=== PATIENT | male | born 1960 | race Caucasian/White ===

== ENCOUNTER 2020-04-29 13:08 | Outpatient (REF) | payer MEDICARE, MEDICAID, SELFPAY ==
[2020-04-29 14:29] LABS: MANUAL DIFF FLAG NO
[2020-04-29 14:38] LABS: Basophils Absolute Auto 0.1 X10*3/uL (0.0-0.2); Basophils Percent Auto 0.9 % (0-2); Eosinophils Absolute Auto 0.3 X10*3/uL (0.0-0.4); Eosinophils Percent Auto 2.8 % (0-4); Hematocrit 43.5 % (42-52); Hemoglobin 14.6 g/dl (14.0-18.0); Imm Gran Abs Auto 0.02 X10*3/uL (0.00-0.03); Imm Gran Pct Auto 0.2 % (0.0-0.4); Lymphocytes Absolute Auto 3.3 X10*3/uL (1.2-4.9); Lymphocytes Percent Auto 36.4 % (20-40); Mean Corpuscular HGB Conc 33.6 g/dl (31.0-36.0); Mean Corpuscular Hemoglobin 29.3 pg (27.0-33.0); Mean Corpuscular Volume 87.2 fL (80-98); Mean Platelet Volume 11.3 fL (9.4-12.4); Monocytes Absolute Auto 0.7 X10*3/uL (0.1-1.2); Neutrophils Absolute Auto 4.7 X10*3/uL (2.0-8.3); Neutrophils Percent Auto 51.7 % (45-73); Platelet Count 191 X10*3/uL (160-400); Red Blood Count 4.99 X10*6/uL (4.60-5.80); Red Cell Distribution Width 12.6 % (11.0-16.0)
[2020-04-29 14:43] LABS: Estimated Average Glucose 100 mg/dL; Hemoglobin A1c % 5.1 %
[2020-04-29 15:25] LABS: Anion Gap 13 (12-20); Blood Urea Nitrogen 12 mg/dL (9-16); Calcium 8.6 mg/dL (8.4-10.2); Carbon Dioxide 27 mmol/L (22-29); Chloride 103 mmol/L (96-108); Cholesterol 186 mg/dL; Estimated Glomerular Filt Rate > 60; Glucose Fasting 78 mg/dL (60-99); HDL Cholesterol 36 mg/dL; LDL Cholesterol Calculated 124 mg/dl; Potassium 4.3 mmol/l (3.3-5.1); Sodium 139 mmol/L (135-145); Triglycerides 133 mg/dL
== END 2020-04-29 13:09 | disposition home or self-care (01) ==
LOC: HO.LAB 13:08
PROVIDERS: PCP Nurse Practitioner Family; Visit Provider Nurse Practitioner Family
DX: G47.01 Insomnia due to medical condition (principal); J45.20 Mild intermittent asthma, uncomplicated; Z83.3 Family history of diabetes mellitus; Z83.42 Family history of familial hypercholesterolemia
CPT/HCPCS: 36415; 80048; 80061; 83036; 85025

== ENCOUNTER 2020-06-28 10:07 | Outpatient (REF) | payer MEDICARE, MEDICAID, SELFPAY | END 2020-06-28 10:08 | disposition home or self-care (01) | LOC: HO.LAB 10:07 | PROVIDERS: Visit Provider Internal Medicine | DX: Z20.822 Contact with and (suspected) exposure to COVID-19 (principal) | CPT/HCPCS: 36415; C9803; U0003 ==

== ENCOUNTER 2020-08-21 14:36 | Emergency (ER) | payer MEDICARE, MEDICAID, SELFPAY ==
[2020-08-21 14:40] VITALS: BP 181/105; PULSE 94; RESP 18; TEMP 36.8; O2SAT 97
[2020-08-21 14:56] VITALS: BP 147/93; PULSE 100; RESP 18; TEMP 36.7; O2SAT 98; BMI 26.6
--- NOTE | 2020-08-21 15:26 | ECG_ITS ---
Test Reason : HIGH BP Blood Pressure : / mmHG Vent. Rate : 077 BPM Atrial Rate : 077 BPM P-R Int : 174 ms QRS Dur : 090 ms QT Int : 412 ms P-R-T Axes : 064 014 030 degrees QTc Int : 466 ms Normal sinus rhythm Normal ECG When compared with ECG of 03-JUN-2015 22:03, No significant change was found Referred By: Generic ED Physician Electronically Signed By:MESSI TAN
[2020-08-21 15:45] LABS: MANUAL DIFF FLAG NO
[2020-08-21 15:47] LABS: Basophils Absolute Auto 0.1 X10*3/uL (0.0-0.2); Basophils Percent Auto 0.7 % (0-2); Eosinophils Absolute Auto 0.2 X10*3/uL (0.0-0.4); Eosinophils Percent Auto 2.2 % (0-4); Hematocrit 43.3 % (42-52); Hemoglobin 14.8 g/dl (14.0-18.0); Imm Gran Abs Auto 0.03 X10*3/uL (0.00-0.03); Imm Gran Pct Auto 0.3 % (0.0-0.4); Lymphocytes Percent Auto 30.8 % (20-40); Mean Corpuscular HGB Conc 34.2 g/dl (31.0-36.0); Mean Corpuscular Hemoglobin 30.5 pg (27.0-33.0); Mean Corpuscular Volume 89.1 fL (80-98); Mean Platelet Volume 10.5 fL (9.4-12.4); Monocytes Absolute Auto 0.7 X10*3/uL (0.1-1.2); Monocytes Percent Auto 7.4 % (2-11); Neutrophils Absolute Auto 5.7 X10*3/uL (2.0-8.3); Neutrophils Percent Auto 58.6 % (45-73); Platelet Count 186 X10*3/uL (160-400); Red Blood Count 4.86 X10*6/uL (4.60-5.80); Red Cell Distribution Width 12.9 % (11.0-16.0); White Blood Count 9.8 X10*3/uL (4.8-10.8)
[2020-08-21 16:13] LABS: Anion Gap 14 (12-20); Blood Urea Nitrogen 12 mg/dL (9-16); Calcium 8.9 mg/dL (8.4-10.2); Carbon Dioxide 27 mmol/L (22-29); Chloride 102 mmol/L (96-108); Creatinine Clr Calc Pharmacy 97.7; Estimated Glomerular Filt Rate > 60; Glucose Random 86 mg/dL (60-115); Potassium 4.4 mmol/L (3.3-5.1); Sodium 139 mmol/L (135-145)
--- NOTE | 2020-08-21 19:01 | ED.RECABL ---
HPI - Recheck/Abnormal Lab/Rx General Chief Complaint: Recheck/Abnormal Lab/Rx <DANIELE Ramirez - Last Filed: 08/21/20 19:22> Stated Complaint: high blood pressure,sore throat <DANIELE Ramirez - Last Filed: 08/21/20 19:22> Time Seen by Provider: 08/21/20 17:12 <DANILEE Ramirez - Last Filed: 08/21/20 19:22> Source: patient <DANIELE Ramirez - Last Filed: 08/21/20 19:22> Limitations: no limitations <DANIELE Ramirez Last Filed: 08/21/20 19:22> History of Present Illness HPI narrative: 60-year-old male with a past medical history of substance abuse currently on methadone, asthma, COPD, anxiety, depression and insomnia presenting to the ED with complaints of a sore throat and elevated blood pressure that he noticed at 15:00 while being at his brother's house. He reports that he has been having intermittent headaches at the frontal aspect with associated blurry vision and nausea for the past few days which resolves shortly after he wakes up. He reports he also woke up this morning with a sore throat. Denies any dizziness, lightheadedness, blurry vision at this time, headache at this time, nausea/vomiting, paresthesias, jaw pain, extremity pain or edema, palpitations, chest pain, shortness of breath, dyspnea on exertion, orthopnea, any symptoms or any other symptoms complaints or concerns at this time. Denies recent travel or sick contacts. <DANIELE Ramirez - Last Filed: 08/21/20 19:22> MD complaint: other (Elevated blood pressure) <DANIELE Ramirez - Last Filed: 08/21/20 19:22> Related Data Home Medications: Home Medications Medication Instructions Recorded Confirmed albuterol sulfate 90 mcg/actuation 2 puff PO Q4-6H PRN 04/10/20 07/30/20 aerosol inhaler budesonide-formoterol HFA 160 2 puff INHALATION BID 04/10/20 07/30/20 mcg-4.5 mcg/actuation aerosol inhaler ibuprofen 600 mg tablet 600 mg PO Q6H PRN 04/10/20 07/30/20 ibuprofen 600 mg tablet 600 mg PO Q6H PRN 04/10/20 07/30/20 methadone 10 mg/mL oral concentrate 65 mg PO DAILY ml 04/10/20 07/30/20 ibuprofen 200 mg capsule 200 mg PO Q6H PRN 05/21/20 07/30/20 Previous Rx's Medication Instructions Recorded melatonin 5 mg tablet 5 mg PO BEDTIME PRN #30 tab 05/04/20 azithromycin 250 mg tablet 250 mg PO DAILY 5 Days #6 tab 05/21/20 carbamide peroxide 6.5 % ear drops 5 drp OTIC (EARS) DAILY 4 Days #15 05/21/20 ml melatonin 10 mg capsule 10 mg PO BEDTIME PRN 30 Days #30 05/21/20 cap albuterol sulfate 90 mcg/actuation 2 puff INHALATION Q6H PRN #8.5 g 07/30/20 aerosol inhaler budesonide-formoterol HFA 160 2 puff PO Q12H #10.2 g 07/30/20 mcg-4.5 mcg/actuation aerosol inhaler trazodone 50 mg tablet 50 mg PO BEDTIME PRN 30 Days #30 07/30/20 tab amoxicillin-pot clavulanate 1 tab PO BID 10 Days #20 tab 08/21/20 [Augmentin] lisinopril 10 mg PO DAILY #30 tab 08/21/20 <DANIELE Ramirez - Last Filed: 08/21/20 19:22> Allergies/Adverse Reactions: Allergies Allergy/AdvReac Type Severity Reaction Status Date / Time No Known Allergies Allergy Verified 07/24/20 13:48 [No Known Allergies*] <DANIELE Ramirez - Last Filed: 08/21/20 19:22> Review of Systems Review of Systems: Constitutional : No Weight loss, No Fever, No Chills, No Night Sweats, No Fatigue, No Malaise ENT/Mouth : + sore throat, No Hearing loss, No Ear Pain, No Nasal Congestion, No Sinus Pain, No Hoarseness, No Rhinorrhea, No Swallowing Difficulty Eyes: No Eye Pain, No Swelling, No Redness, No Foreign Body, No Discharge, No Vision Changes Cardiovascular : No Chest Pain, No SOB, No Dyspnea on Exertion, No Orthopnea, No Edema, No Palpitations Respiratory : No Cough, No Sputum, No Wheezing, No Smoke Exposure, No Dyspnea Gastrointestinal : No Nausea, No Vomiting, No Diarrhea, No Constipation, No abdominal Pain, No Hematochezia, No Melena Genitourinary : no irregular bleeding, No Dysuria, No Urinary Frequency, No Hematuria, No Urinary Incontinence, No Urgency, No Flank Pain, No Urinary Flow Changes, No Hesitancy Musculoskeletal : No joint pain, No Myalgias, No Joint Swelling Skin : No Skin Lesions, No rash Neuro : No Weakness, No Numbness, No Paresthesias, No Loss of Consciousness, No Dizziness, No Headache Psych : No Anxiety/Panic, No Depression, No SI/HI/AH/VH, No Social Issues, Heme/Lymph: No Bruising, No Bleeding,No Lymphadenopathy Endocrine : No Polyuria, No Polydipsia, No Temperature Intolerance <DANIELE Ramirez - Last Filed: 08/21/20 19:22> Yes all other systems are reviewed and are negative <DANIELE Ramirez - Last Filed: 08/21/20 19:22> [facility] Past Medical History Attestation statement: The following information was validated with the patient. <DANIELE Ramirez - Last Filed: 08/21/20 19:22> Medical History: Medical History Anxiety and depression Asthma COPD (chronic obstructive pulmonary disease) Family history of diabetes mellitus Gallbladder attack Insomnia Sorethroat <DANIELE Ramirez - Last Filed: 08/21/20 19:22> Surgical History: Surgical History No history of previous surgery <DANIELE Ramirez - Last Filed: 08/21/20 19:22> Family History Family History: Family History Mother Cancer Father Dementia <DANIELE Ramirez - Last Filed: 08/21/20 19:22> Social History Social History: Social History Alcohol intake: never Smoking Status: Current every day smoker Cigarettes Per Day: 17 Advance Directives: No Advance Directives Information Provided: Yes <DANIELE Ramirez - Last Filed: 08/21/20 19:22> Physical Exam Vital Signs: Vital Signs: Last Vital Signs Temp 98.0 F 08/21/20 19:04 Pulse 79 08/21/20 19:27 Resp 18 08/21/20 19:04 BP 153/103 H 08/21/20 19:27 Pulse Ox 96 08/21/20 19:04 Body Mass Index 26.6 Vital signs have been reviewed as normal and appeared to be correct. Blood pressure hypertensive at 181/105. Heart rate normal. Respiration rate normal. Temperature normal. Oxygen saturation normal. <DANIELE Ramirez - Last Filed: 08/21/20 19:22> Vital Signs: Last Vital Signs Temp 98.0 F 08/21/20 19:04 Pulse 79 08/21/20 19:27 Resp 18 08/21/20 19:04 BP 153/103 H 08/21/20 19:27 Pulse Ox 96 08/21/20 19:04 Body Mass Index 26.6 <Marcelo Yip MD - Last Filed: 09/05/20 14:56> Appearance: Alert. Oriented X3. No acute distress. Head: Normal external exam. Normocephalic. Atraumatic. Able to rotate head bilaterally. Eyes: PERRLA. EOMI. No nystagmus noted. Conjunctiva and sclera normal. Eyelids normal. Corneal reflex normal. ENT: Posterior pharynx erythematous with exudate noted bilaterally. Not consistent with peritonsillar abscess or pharyngeal abscess. Uvula midline. tongue midline. Moist mucous membranes. No trismus noted. No drooling noted. No muffled voice noted. No nystagmus noted. Neck: Normal inspection. Neck supple. FROM. No adenopathy. Trachea midline. Thyroid Normal. No meningeal signs. No neck mass noted. CVS: Normal heart rate and rhythm. Heart sound normal. No murmurs noted. Pulses normal throughout. Respiratory: No respiratory distress. Painless inspiration. Breath sounds normal. No wheezes/rales/rhonchi noted. Chest nontender. No accessory muscle usage noted or decreased air movement noted. Abdomen: Soft and nontender. Bowel sounds normal in all 4 quadrants. No distention noted. No organomegaly noted. No visible injury noted. Back: No CVA tenderness. Full range of motion noted. Skin: Skin warm and dry. Normal skin color. Normal skin turgor. No rashes/lesions/lacerations noted. Extremities: No lower extremity edema. Extremities exhibit normal range of motion. Extremities nontender. Able to shrug shoulders bilaterally and keep up against resistance. Neuro: Oriented X 3. No motor deficit. No sensory deficit. Reflexes normal. Moving all extremities. No focal motor deficits. Cranial nerves II-XI intact bilaterally. Facial strength normal. Normal cognition. Speech normal. Gait normal. Strength 5/5 throughout. No pronator drift. No tremor noted. No fasciculations noted. No rigidity noted. Muscle tone normal throughout. No asterixis noted. Rrrtzc-us-[id number] test normal. Heel to simmons test normal. Tandem gait normal. Does not sway with eyes open. Romberg test negative. Rapid alternating movement upper extremity normal. Rapid alternating movement lower extremity normal. Hand drop from overhead Misses face. NIHSS score 0. <DANIELE Ramirez - Last Filed: 08/21/20 19:22> Course Course Course Narrative: 60-year-old male with a past medical history of substance abuse currently on methadone, asthma, COPD, anxiety, depression and insomnia presenting to the ED with complaints of a sore throat and elevated blood pressure that he noticed at 15:00 while being at his brother's house. - on exam patient is alert and oriented x3. Not in any acute distress. Hypertensive at 181/85 now at 153/103 all other vitals are within normal limits. No focal neuro deficits are noted. NIH SS score 0 non disabling symptoms. CV RRR. Lungs CTA. Abdomen is soft and nontender. No lower extremity pitting edema. - labs obtained and all within normal limits. Patient denies any additional complaints or concerns at this time therefore at this time will obtain a rapid strep start the patient on 10 mg of lisinopril and have the patient follow-up with his PCP this week or next week. Patient understands and agrees with this plan. <DANIELE Ramirez - Last Filed: 08/21/20 19:22> I have reviewed the chart <Marcelo Yip MD - Last Filed: 09/05/20 14:56> MDM - Recheck/Abnormal Lab/Rx Medical Records Attestation: I reviewed the patient's medical records. <DANIELE Ramirez - Last Filed: 08/21/20 19:22> Lab Data Attestation: I reviewed the patient's lab results. <DANIELE Ramirez - Last Filed: 08/21/20 19:22> Result diagrams: : 08/21/20 15:41 08/21/20 15:41 <DANIELE Ramirez - Last Filed: 08/21/20 19:22> Labs: Lab Results 08/21/20 08/21/20 Range/Units 15:41 15:41 WBC 9.8 (4.8-10.8) X10*3/uL RBC 4.86 (4.60-5.80) X10*6/uL Hgb 14.8 (14.0-18.0) g/dl Hct 43.3 (42-52) % MCV 89.1 (80-98) fL MCH 30.5 (27.0-33.0) pg MCHC 34.2 (31.0-36.0) g/dl RDW 12.9 (11.0-16.0) % Plt Count 186 (160-400) X10*3/uL MPV 10.5 (9.4-12.4) fL Immature Gran % (Auto) 0.3 (0.0-0.4) % Neut % (Auto) 58.6 (45-73) % Lymph % (Auto) 30.8 (20-40) % Hutchinson % (Auto) 7.4 (2-11) % Eos % (Auto) 2.2 (0-4) % Baso % (Auto) 0.7 (0-2) % Lymph # (Auto) 3.0 (1.2-4.9) X10*3/uL Hutchinson # (Auto) 0.7 (0.1-1.2) X10*3/uL Eos # (Auto) 0.2 (0.0-0.4) X10*3/uL Baso # (Auto) 0.1 (0.0-0.2) X10*3/uL Abs Immat Gran (auto) 0.03 (0.00-0.03) X10*3/uL Absolute Neuts (auto) 5.7 (2.0-8.3) X10*3/uL Absolute Nucleated RBC 0.000 (0.0-0.012) X10*3/uL Nucleated RBC % (auto) 0.0 (0.0-0.2) /100WBC Sodium 139 (135-145) mmol/L Potassium 4.4 (3.3-5.1) mmol/L Chloride 102 (96-108) mmol/L Carbon Dioxide 27 (22-29) mmol/L Anion Gap 14 (12-20) BUN 12 (9-16) mg/dL Creatinine 0.77 (0.5-1.4) mg/dL Estim Creat Clear Calc 97.7 Estimated GFR > 60 Random Glucose 86 (60-115) mg/dL Calcium 8.9 (8.4-10.2) mg/dL <DANIELE Ramirez - Last Filed: 08/21/20 19:22> Lab Results 08/21/20 08/21/20 Range/Units 15:41 15:41 WBC 9.8 (4.8-10.8) X10*3/uL RBC 4.86 (4.60-5.80) X10*6/uL Hgb 14.8 (14.0-18.0) g/dl Hct 43.3 (42-52) % MCV 89.1 (80-98) fL MCH 30.5 (27.0-33.0) pg MCHC 34.2 (31.0-36.0) g/dl RDW 12.9 (11.0-16.0) % Plt Count 186 (160-400) X10*3/uL MPV 10.5 (9.4-12.4) fL Immature Gran % (Auto) 0.3 (0.0-0.4) % Neut % (Auto) 58.6 (45-73) % Lymph % (Auto) 30.8 (20-40) % Hutchinson % (Auto) 7.4 (2-11) % Eos % (Auto) 2.2 (0-4) % Baso % (Auto) 0.7 (0-2) % Lymph # (Auto) 3.0 (1.2-4.9) X10*3/uL Hutchinson # (Auto) 0.7 (0.1-1.2) X10*3/uL Eos # (Auto) 0.2 (0.0-0.4) X10*3/uL Baso # (Auto) 0.1 (0.0-0.2) X10*3/uL Abs Immat Gran (auto) 0.03 (0.00-0.03) X10*3/uL Absolute Neuts (auto) 5.7 (2.0-8.3) X10*3/uL Absolute Nucleated RBC 0.000 (0.0-0.012) X10*3/uL Nucleated RBC % (auto) 0.0 (0.0-0.2) /100WBC Sodium 139 (135-145) mmol/L Potassium 4.4 (3.3-5.1) mmol/L Chloride 102 (96-108) mmol/L Carbon Dioxide 27 (22-29) mmol/L Anion Gap 14 (12-20) BUN 12 (9-16) mg/dL Creatinine 0.77 (0.5-1.4) mg/dL Estim Creat Clear Calc 97.7 Estimated GFR > 60 Random Glucose 86 (60-115) mg/dL Calcium 8.9 (8.4-10.2) mg/dL <Marcelo Yip MD - Last Filed: 09/05/20 14:56> Discharge Plan Discharge Clinical Impression: Pharyngitis, Hypertension <DANIELE Ramirez - Last Filed: 08/21/20 19:22> Patient Disposition: Home, Self-Care <DANIELE Ramirez - Last Filed: 08/21/20 19:22> Instructions: Heart Healthy Diet (ED), Hypertension (ED) <DANIELE Ramirez - Last Filed: 08/21/20 19:22> Prescriptions: New amoxicillin-pot clavulanate [Augmentin] 875-125 mg tablet 1 tab PO BID 10 Days Qty: 20 RF: 0 lisinopril 10 mg tablet 10 mg PO DAILY Qty: 30 RF: 0 No Action melatonin 5 mg tablet 5 mg PO BEDTIME PRN (Reason: for insomnia) Qty: 30 RF: 0 albuterol sulfate 90 mcg/actuation HFA aerosol inhaler 2 puff PO Q4-6H PRNRF: 0 methadone 10 mg/mL concentrate 65 mg PO DAILY RF: 0 budesonide-formoterol [Symbicort] 160-4.5 mcg/actuation HFA aerosol inhaler 2 puff inhalation BID RF: 0 ibuprofen 600 mg tablet 600 mg PO Q6H PRNRF: 0 Hold Instructions: Home Medication placed on hold at Doctor's office ibuprofen 600 mg tablet 600 mg PO Q6H PRNRF: 0 albuterol sulfate 90 mcg/actuation HFA aerosol inhaler 2 puff inhalation Q6H PRN (Reason: for wheezing) Qty: 8.5 RF: 2 trazodone 50 mg tablet 50 mg PO BEDTIME PRN (Reason: sleep) 30 Days Qty: 30 RF: 0 budesonide-formoterol [Symbicort] 160-4.5 mcg/actuation HFA aerosol inhaler 2 puff PO Q12H Qty: 10.2 RF: 2 ibuprofen [Advil Liqui-Gel] 200 mg capsule 200 mg PO Q6H PRNRF: 0 azithromycin 250 mg tablet 250 mg PO DAILY 5 Days Qty: 6 RF: 0 carbamide peroxide [Debrox] 6.5 % drops 5 drp otic (ears) DAILY 4 Days Qty: 15 RF: 0 melatonin 10 mg capsule 10 mg PO BEDTIME PRN (Reason: sleep) 30 Days Qty: 30 RF: 0 <DANIELE Ramirez - Last Filed: 08/21/20 19:22> Referrals: Aditi Bernal NP [Nurse Practitioner] - 1 day (New onset hypertension started on 10 mg lisinopril needs follow-up this week or next week at the latest) <DANIELE Ramirez - Last Filed: 08/21/20 19:22> Interventions: ED Discharge Assessment Last Done: 08/21/20 19:42 <DANIELE Ramirez - Last Filed: 08/21/20 19:22> Discharge Date/Time: 08/21/20 19:44 <DANIELE Ramirez - Last Filed: 08/21/20 19:22> Print Language: Togolese <DANIELE Ramirez - Last Filed: 08/21/20 19:22>
[2020-08-21 19:04] VITALS: BP 153/103; PULSE 79; RESP 18; TEMP 36.7; O2SAT 96
[2020-08-21 19:27] VITALS: BP 153/103; PULSE 79
[2020-08-21] MEDS: Amoxicillin/Potassium Clav 875 MG TABLET PO (19:27)
[2020-08-21] MEDS: lisinopriL 10 MG TABLET PO (19:27)
== END 2020-08-21 19:44 | disposition home or self-care (01) ==
PROVIDERS: Emergency Provider Emergency Medicine
DX: J02.9 Acute pharyngitis, unspecified (principal); R51.9 Headache, unspecified; R79.89 Other specified abnormal findings of blood chemistry; I10 Essential (primary) hypertension; F17.210 Nicotine dependence, cigarettes, uncomplicated; Z71.6 Tobacco abuse counseling; Z79.899 Other long term (current) drug therapy
CPT/HCPCS: 36415; 80048; 85025; 87071; 87147; 87880; 93005; 99283; 99284

== ENCOUNTER 2020-09-06 09:27 | Outpatient (REF) | payer MEDICARE, MEDICAID, SELFPAY ==
[2020-09-06 10:02] LABS: COVID-19 Test Negative (Negative)
== END 2020-09-06 09:28 | disposition home or self-care (01) ==
LOC: HO.LAB 09:27
PROVIDERS: Visit Provider Internal Medicine
DX: Z20.822 Contact with and (suspected) exposure to COVID-19 (principal)
CPT/HCPCS: 36415; 87635; C9803

== ENCOUNTER 2020-09-13 05:24 | Emergency (ER) | payer MEDICARE, MEDICAID, SELFPAY | END 2020-09-13 06:03 | disposition left against medical advice (07) | PROVIDERS: Emergency Provider Emergency Medicine | DX: R50.9 Fever, unspecified (principal); R06.02 Shortness of breath; R42 Dizziness and giddiness ==

== ENCOUNTER 2020-09-13 10:09 | Emergency (ER) | payer MEDICARE, MEDICAID, SELFPAY ==
--- NOTE | ~2020-09-13 | CT_ITS ---
EXAMINATION: CT HEAD WITHOUT CONTRAST CLINICAL INFORMATION: Dizziness and blurred vision COMPARISON: None TECHNIQUE: Contiguous axial imaging was performed from the skull base to vertex without intravenous administration of contrast. This CT examination was performed using dose optimization techniques as appropriate, variously including the following: *Automated exposure control *Adjustment of mA and/or kV according to patient size (this includes techniques or standardized protocols for targeted exams where dose is matched to indication/reason for exam; i.e. extremities or head) *Use of iterative reconstruction technique DLP: 780 mGy-cm FINDINGS: There is no evidence of acute intracranial hemorrhage or territorial infarction. No abnormal mass effect or midline shift is seen. Perez to white matter differentiation is well preserved. No extra-axial fluid collections are identified. The ventricles are normal in size. There is no abnormal attenuation within the brain parenchyma. The osseous structures and soft tissues are normal. There is mucoperiosteal thickening right maxillary and sphenoid sinuses. Rest of the paranasal sinuses are clear. CT/CT head/brain wo con IMPRESSION: No acute intracranial process seen. Chronic right maxillary and sphenoid sinus inflammatory changes.
[2020-09-13 10:19] VITALS: BP 147/91; PULSE 99; RESP 18; TEMP 37.1; BMI 27.7
--- NOTE | 2020-09-13 10:40 | PC.NURSE ---
pt speechclear. follows commands. moves all extremities. equal bilateral grasp
[2020-09-13 10:58] VITALS: BP 171/103; PULSE 84; RESP 12; TEMP 36.7; O2SAT 95
--- NOTE | 2020-09-13 11:27 | ED_ITS ---
HPI - General Adult General Chief complaint: Dizziness Stated complaint: DIZZY SORE THROAT SOB Time Seen by Provider: 09/13/20 11:25 Source: patient Mode of arrival: ambulatory Limitations: no limitations History of Present Illness HPI narrative: 60 y/o male with history of HTN, COPD, anxiety, depression, insomnia who presents to the ED with intermittent positional dizziness for the last 3 days as well as intermittent blurry vision. He also reports sore throat and body aches. He states he was seen here a few weeks ago for a sore throat and elevated BP. He was started on Lisinopril and given antibiotics for his sore throat with improvement. Once the antibiotics were done his sore throat came back. He denies fever or chills. He reports lightheadedness when standing that is brief, resolved with rest. He admits to not drinking water during the day. No weakness, numbness, tingling, difficulty walking. MD complaint: dizziness Onset (ago): day(s) (3) Location: head Radiation: non-radiation Severity: moderate Relieving factors: rest Exacerbating factors: movement Associated symptoms: headaches, loss of appetite and malaise Treatments prior to arrival: none Related Data Home Medications Medication Instructions Recorded Confirmed albuterol sulfate 90 mcg/actuation 2 puff PO Q4-6H PRN 04/10/20 07/30/20 aerosol inhaler budesonide-formoterol HFA 160 2 puff INHALATION BID 04/10/20 07/30/20 mcg-4.5 mcg/actuation aerosol inhaler ibuprofen 600 mg tablet 600 mg PO Q6H PRN 04/10/20 07/30/20 ibuprofen 600 mg tablet 600 mg PO Q6H PRN 04/10/20 07/30/20 methadone 10 mg/mL oral concentrate 65 mg PO DAILY ml 04/10/20 07/30/20 ibuprofen 200 mg capsule 200 mg PO Q6H PRN 05/21/20 07/30/20 Previous Rx's Medication Instructions Recorded carbamide peroxide 6.5 % ear drops 5 drp OTIC (EARS) DAILY 4 Days #15 05/21/20 ml albuterol sulfate 90 mcg/actuation 2 puff INHALATION Q6H PRN #8.5 g 07/30/20 aerosol inhaler budesonide-formoterol HFA 160 2 puff PO Q12H #10.2 g 07/30/20 mcg-4.5 mcg/actuation aerosol inhaler lisinopril 10 mg PO DAILY #30 tab 08/21/20 Allergies Allergy/AdvReac Type Severity Reaction Status Date / Time No Known Allergies Allergy Verified 09/13/20 09:20 [No Known Allergies*] Review of Systems Review of Systems: Constitutional: No Fever, No Chills ENT/Mouth: + sore throat, No Rhinorrhea, No Swallowing Difficulty Cardiovascular: No Chest Pain, No SOB, No Orthopnea, No Edema Respiratory: No Cough, No Sputum, No Wheezing, No dyspnea Gastrointestinal: + Nausea, No Vomiting, No Diarrhea, No abdominal Pain Genitourinary: No Dysuria, No Urinary Frequency, No Hematuria Musculoskeletal: + joint pain, + Myalgias Skin: No Skin Lesions, No rash Neuro: No Weakness, No Numbness, + Dizziness, + Headache Psych: No Anxiety/Panic, No Depression Heme/Lymph: No Bruising, No Lymphadenopathy Endocrine: No Polyuria, No Polydipsia PMFSH Past Medical History Attestation statement: The following information was validated with the patient. Medical History Anxiety and depression Asthma COPD (chronic obstructive pulmonary disease) Family history of diabetes mellitus Gallbladder attack Insomnia Sorethroat Surgical History No history of previous surgery Family History Family History Mother Cancer Father Dementia Social History Social History Alcohol intake: never Smoking Status: Current every day smoker Cigarettes Per Day: 17 Use of substances other than those prescribed or required for medical reasons: No Advance Directives: Yes Advance Directives Information Provided: Yes Advance Directives on File: No Physical Exam Vital Signs: Vital Signs: Last Vital Signs Temp 98.1 F 09/13/20 10:58 Pulse 85 09/13/20 12:02 Resp 12 09/13/20 10:58 BP 158/95 H 09/13/20 12:02 Pulse Ox 95 09/13/20 10:58 Body Mass Index 27.7 Appearance: Alert. Oriented X3. No acute distress. Eyes: Pupils equal, round and reactive to light. ENT: posterior oropharynx with moderate generalized erythema, no tonsillar swelling or exudate. Bilateral cerumen impaction obstructing TM view. Neck: Normal inspection. Neck supple. No LAD. CVS: Normal heart rate and rhythm. Pulses normal. Respiratory: No respiratory distress. Breath sounds normal. Abdomen: Soft and nontender. +BS x4 Skin: Skin warm and dry. Normal skin color. Normal skin turgor. No rashes. Extremities: No lower extremity edema. Negative Nadya's sign. Neuro: Oriented X 3. No motor deficit. No sensory deficit. Course Course Course Narrative: 60 yo male presenting with intermittent positional dizziness, headaches and body aches for the last 3 days. Has been compliant with his lisinopril. He does not monitor his BP at home. He had a recent COVID test that was negative. Given his symptoms, will repeat COVID test, repeat Strep swab, basic labs and CT scan of head given persistent symptoms. BP is not consistent with hypertensive urgency. He is non-focal on examination, doubt CVA. Not a tPA candidate, his symptoms His dizziness may be due to cerumen impaction and inner ear disturbance vs dehydration. Will monitor. Dispo pending results and improvement. Reevaluation(s) Reevaluation #1: Lab workup unremarkable. Orthostatics negative. Patient sleeping comfortably. Reevaluation #2: COVID swab + patient counseled on his diagnosis. Irrigated and curretted ears with successful cerumen removal. Patient feeling better and is stable for discharge home. Warning signs/symptoms to return to the ER discussed and patient understands. Stable for d/c. Procedures Ear Wax Removal Both Ears: Results: Re-examined: cerumen removed completely TM Examination: TM(s) intact, normal appearance Ear Canal Exam: bleeding Noted (mild, only on the right) Patient Tolerated Procedure: well Complications: no problems Technique: ear canal irrigated and ear canal curetted Additional Comments: tolerated well Medical Decision Making Lab Data Result diagrams: 09/13/20 12:12 09/13/20 12:12 Labs: Lab Results 09/13/20 09/13/20 09/13/20 Range/Units 12:12 12:12 12:12 WBC 5.6 (4.8-10.8) X10*3/uL RBC 5.07 (4.60-5.80) X10*6/uL Hgb 15.2 (14.0-18.0) g/dl Hct 45.9 (42-52) % MCV 90.5 (80-98) fL MCH 30.0 (27.0-33.0) pg MCHC 33.1 (31.0-36.0) g/dl RDW 13.0 (11.0-16.0) % Plt Count 162 (160-400) X10*3/uL MPV 10.3 (9.4-12.4) fL Immature Gran % (Auto) 0.2 (0.0-0.4) % Neut % (Auto) 49.9 (45-73) % Lymph % (Auto) 36.9 (20-40) % [place] % (Auto) 10.6 (2-11) % Eos % (Auto) 2.0 (0-4) % Baso % (Auto) 0.4 (0-2) % Lymph # (Auto) 2.1 (1.2-4.9) X10*3/uL [place] # (Auto) 0.6 (0.1-1.2) X10*3/uL Eos # (Auto) 0.1 (0.0-0.4) X10*3/uL Baso # (Auto) 0.0 (0.0-0.2) X10*3/uL Abs Immat Gran (auto) 0.01 (0.00-0.03) X10*3/uL Absolute Neuts (auto) 2.8 (2.0-8.3) X10*3/uL Absolute Nucleated RBC 0.000 (0.0-0.012) X10*3/uL Nucleated RBC % (auto) 0.0 (0.0-0.2) /100WBC Hold Blue Top SEE NOTE Sodium 137 (135-145) mmol/L Potassium 4.8 (3.3-5.1) mmol/L Chloride 98 (96-108) mmol/L Carbon Dioxide 29 (22-29) mmol/L Anion Gap 15 (12-20) BUN 13 (9-16) mg/dL Creatinine 0.81 (0.5-1.4) mg/dL Estim Creat Clear Calc 100.9 Estimated GFR > 60 Random Glucose 121 H D (60-115) mg/dL Calcium 8.7 (8.4-10.2) mg/dL Magnesium 2.2 (1.6-2.6) mg/dL Total Bilirubin 0.5 (0.0-1.0) mg/dL Direct Bilirubin 0.2 (0.0-0.5) mg/dL AST 15 (5-37) U/L ALT 25 (0-40) U/L Alkaline Phosphatase 86 (39-117) U/L Troponin I High Sens (<3.5-35.0) ng/L Total Protein 8.0 (6.5-8.0) g/dL Albumin 4.7 (3.5-5.0) g/dL Urine Color Urine Appearance Urine pH (5.0-8.0) Ur Specific [place] (1.005-1.025) Urine Protein (NEG-TRACE) MG/DL Urine Glucose (UA) (NEG) MG/DL Urine Ketones (NEG) MG/DL Urine Blood (NEG) Urine Nitrite (NEG) Ur Leukocyte Esterase (NEG) Urine Opiates Screen (Not Detect) Ur Barbiturates Screen (Not Detect) Ur Phencyclidine Scrn (Not Detect) Ur Amphetamines Screen (Not Detect) U Benzodiazepines Scrn (Not Detect) Urine Cocaine Screen (Not Detect) U Marijuana (THC) Screen (Not Detect) Coronavirus (PCR) (Negative) Influenza Type A (PCR) (Negative) Influenza Type B (PCR) (Negative) RSV RNA Qual (PCR) (Negative) 09/13/20 09/13/20 09/13/20 Range/Units 12:12 12:14 12:14 WBC (4.8-10.8) X10*3/uL RBC (4.60-5.80) X10*6/uL Hgb (14.0-18.0) g/dl Hct (42-52) % MCV (80-98) fL MCH (27.0-33.0) pg MCHC (31.0-36.0) g/dl RDW (11.0-16.0) % Plt Count (160-400) X10*3/uL MPV (9.4-12.4) fL Immature Gran % (Auto) (0.0-0.4) % Neut % (Auto) (45-73) % Lymph % (Auto) (20-40) % [place] % (Auto) (2-11) % Eos % (Auto) (0-4) % Baso % (Auto) (0-2) % Lymph # (Auto) (1.2-4.9) X10*3/uL [place] # (Auto) (0.1-1.2) X10*3/uL Eos # (Auto) (0.0-0.4) X10*3/uL Baso # (Auto) (0.0-0.2) X10*3/uL Abs Immat Gran (auto) (0.00-0.03) X10*3/uL Absolute Neuts (auto) (2.0-8.3) X10*3/uL Absolute Nucleated RBC (0.0-0.012) X10*3/uL Nucleated RBC % (auto) (0.0-0.2) /100WBC Hold Blue Top Sodium (135-145) mmol/L Potassium (3.3-5.1) mmol/L Chloride (96-108) mmol/L Carbon Dioxide (22-29) mmol/L Anion Gap (12-20) BUN (9-16) mg/dL Creatinine (0.5-1.4) mg/dL Estim Creat Clear Calc Estimated GFR Random Glucose (60-115) mg/dL Calcium (8.4-10.2) mg/dL Magnesium (1.6-2.6) mg/dL Total Bilirubin (0.0-1.0) mg/dL Direct Bilirubin (0.0-0.5) mg/dL AST (5-37) U/L ALT (0-40) U/L Alkaline Phosphatase (39-117) U/L Troponin I High Sens < 3.5 (<3.5-35.0) ng/L Total Protein (6.5-8.0) g/dL Albumin (3.5-5.0) g/dL Urine Color YELLOW Urine Appearance CLEAR Urine pH 6.5 (5.0-8.0) Ur Specific [place] 1.010 (1.005-1.025) Urine Protein NEG (NEG-TRACE) MG/DL Urine Glucose (UA) NEG (NEG) MG/DL Urine Ketones NEG (NEG) MG/DL Urine Blood NEG (NEG) Urine Nitrite NEG (NEG) Ur Leukocyte Esterase NEG (NEG) Urine Opiates Screen (Not Detect) Ur Barbiturates Screen (Not Detect) Ur Phencyclidine Scrn (Not Detect) Ur Amphetamines Screen (Not Detect) U Benzodiazepines Scrn (Not Detect) Urine Cocaine Screen (Not Detect) U Marijuana (THC) Screen (Not Detect) Coronavirus (PCR) POSITIVE A (Negative) Influenza Type A (PCR) NEGATIVE (Negative) Influenza Type B (PCR) NEGATIVE (Negative) RSV RNA Qual (PCR) NEGATIVE (Negative) 09/13/20 Range/Units 12:14 WBC (4.8-10.8) X10*3/uL RBC (4.60-5.80) X10*6/uL Hgb (14.0-18.0) g/dl Hct (42-52) % MCV (80-98) fL MCH (27.0-33.0) pg MCHC (31.0-36.0) g/dl RDW (11.0-16.0) % Plt Count (160-400) X10*3/uL MPV (9.4-12.4) fL Immature Gran % (Auto) (0.0-0.4) % Neut % (Auto) (45-73) % Lymph % (Auto) (20-40) % [place] % (Auto) (2-11) % Eos % (Auto) (0-4) % Baso % (Auto) (0-2) % Lymph # (Auto) (1.2-4.9) X10*3/uL [place] # (Auto) (0.1-1.2) X10*3/uL Eos # (Auto) (0.0-0.4) X10*3/uL Baso # (Auto) (0.0-0.2) X10*3/uL Abs Immat Gran (auto) (0.00-0.03) X10*3/uL Absolute Neuts (auto) (2.0-8.3) X10*3/uL Absolute Nucleated RBC (0.0-0.012) X10*3/uL Nucleated RBC % (auto) (0.0-0.2) /100WBC Hold Blue Top Sodium (135-145) mmol/L Potassium (3.3-5.1) mmol/L Chloride (96-108) mmol/L Carbon Dioxide (22-29) mmol/L Anion Gap (12-20) BUN (9-16) mg/dL Creatinine (0.5-1.4) mg/dL Estim Creat Clear Calc Estimated GFR Random Glucose (60-115) mg/dL Calcium (8.4-10.2) mg/dL Magnesium (1.6-2.6) mg/dL Total Bilirubin (0.0-1.0) mg/dL Direct Bilirubin (0.0-0.5) mg/dL AST (5-37) U/L ALT (0-40) U/L Alkaline Phosphatase (39-117) U/L Troponin I High Sens (<3.5-35.0) ng/L Total Protein (6.5-8.0) g/dL Albumin (3.5-5.0) g/dL Urine Color Urine Appearance Urine pH (5.0-8.0) Ur Specific [place] (1.005-1.025) Urine Protein (NEG-TRACE) MG/DL Urine Glucose (UA) (NEG) MG/DL Urine Ketones (NEG) MG/DL Urine Blood (NEG) Urine Nitrite (NEG) Ur Leukocyte Esterase (NEG) Urine Opiates Screen Not Detected (Not Detect) Ur Barbiturates Screen Not Detected (Not Detect) Ur Phencyclidine Scrn Not Detected (Not Detect) Ur Amphetamines Screen Not Detected (Not Detect) U Benzodiazepines Scrn Not Detected (Not Detect) Urine Cocaine Screen Not Detected (Not Detect) U Marijuana (THC) Screen Not Detected (Not Detect) Coronavirus (PCR) (Negative) Influenza Type A (PCR) (Negative) Influenza Type B (PCR) (Negative) RSV RNA Qual (PCR) (Negative) Discharge Plan Discharge Clinical Impression: COVID-19 Cerumen impaction Qualifiers: Laterality: bilateral Qualified Code(s): H61.23 - Impacted cerumen, bilateral Patient Disposition: Home, Self-Care Instructions: COVID-19 (Coronavirus Disease 2019) (ED) Additional Instructions: You were found to be COVID-19 POSITIVE today. Your oxygen levels were normal. Your lab workup was unremarkable. Your ears were irrigated out with significant ear wax removal. This should help your dizziness. Recommend Debrox ear drops to soften the wax in your ears. Do not use Q-tips. Rest. Drink plenty of fluids. When going from laying or sitting to standing, do so slowly. Do not go out in public for the next 10 days. Take over the counter cold/flu medications as needed for your symptoms. Take Tylenol and/or Motrin as needed for fevers and body aches. Follow up with your doctor this week. If your shortness of breath worsens , if you develop difficulty breathing or any other concerning symptom come back to the ER for further evaluation. Prescriptions: No Action lisinopril 10 mg tablet 10 mg PO DAILY Qty: 30 RF: 0 albuterol sulfate 90 mcg/actuation HFA aerosol inhaler 2 puff PO Q4-6H PRNRF: 0 methadone 10 mg/mL concentrate 65 mg PO DAILY RF: 0 budesonide-formoterol [Symbicort] 160-4.5 mcg/actuation HFA aerosol inhaler 2 puff inhalation BID RF: 0 ibuprofen 600 mg tablet 600 mg PO Q6H PRNRF: 0 Hold Instructions: Home Medication placed on hold at Doctor's office ibuprofen 600 mg tablet 600 mg PO Q6H PRNRF: 0 albuterol sulfate 90 mcg/actuation HFA aerosol inhaler 2 puff inhalation Q6H PRN (Reason: for wheezing) Qty: 8.5 RF: 2 budesonide-formoterol [Symbicort] 160-4.5 mcg/actuation HFA aerosol inhaler 2 puff PO Q12H Qty: 10.2 RF: 2 ibuprofen [Advil Liqui-Gel] 200 mg capsule 200 mg PO Q6H PRNRF: 0 carbamide peroxide [Debrox] 6.5 % drops 5 drp otic (ears) DAILY 4 Days Qty: 15 RF: 0 Interventions: ED Discharge Assessment Last Done: 09/13/20 14:52 Discharge Date/Time: 09/13/20 14:53
--- NOTE | 2020-09-13 11:38 | ECG_ITS ---
Test Reason : DIZZINESS Blood Pressure : / mmHG Vent. Rate : 087 BPM Atrial Rate : 087 BPM P-R Int : 168 ms QRS Dur : 088 ms QT Int : 382 ms P-R-T Axes : 063 050 047 degrees QTc Int : 459 ms Normal sinus rhythm Normal ECG Referred By: Tiffani Archuleta Electronically Signed By:Dudley Quintana
[2020-09-13 11:58] VITALS: BP 158/95; PULSE 74
[2020-09-13 12:02] VITALS: BP 146/98; BP 158/95; PULSE 81; PULSE 85
[2020-09-13 12:23] LABS: MANUAL DIFF FLAG NO
[2020-09-13 12:26] LABS: Basophils Percent Auto 0.4 % (0-2); Eosinophils Absolute Auto 0.1 X10*3/uL (0.0-0.4); Hematocrit 45.9 % (42-52); Hemoglobin 15.2 g/dl (14.0-18.0); Imm Gran Abs Auto 0.01 X10*3/uL (0.00-0.03); Imm Gran Pct Auto 0.2 % (0.0-0.4); Lymphocytes Absolute Auto 2.1 X10*3/uL (1.2-4.9); Lymphocytes Percent Auto 36.9 % (20-40); Mean Corpuscular HGB Conc 33.1 g/dl (31.0-36.0); Mean Corpuscular Volume 90.5 fL (80-98); Mean Platelet Volume 10.3 fL (9.4-12.4); Monocytes Absolute Auto 0.6 X10*3/uL (0.1-1.2); Monocytes Percent Auto 10.6 % (2-11); Neutrophils Absolute Auto 2.8 X10*3/uL (2.0-8.3); Neutrophils Percent Auto 49.9 % (45-73); Platelet Count 162 X10*3/uL (160-400); Red Blood Count 5.07 X10*6/uL (4.60-5.80); White Blood Count 5.6 X10*3/uL (4.8-10.8)
[2020-09-13 12:35] LABS: Appearance Urine CLEAR; Color Urine YELLOW; Glucose Urine UA NEG (NEG); Leukocyte Esterase Urine NEG (NEG); Nitrite Urine NEG (NEG); PH 6.5 (5.0-8.0); Urine Blood NEG (NEG); Urine Ketones NEG (NEG); Urine Protein NEG (NEG-TRACE)
[2020-09-13 12:57] LABS: Amphetamine Screen Urine Not Detected (Not Detect); Barbiturates, Urine Not Detected (Not Detect); Benzodiazepines Screen Urine Not Detected (Not Detect); Cannabinoid Screen Urine Not Detected (Not Detect); Cocaine Screen Urine Not Detected (Not Detect); Opiate Screen Urine Not Detected (Not Detect); Phencyclidine Screen Urine Not Detected (Not Detect)
[2020-09-13 12:57] LABS: Alanine Aminotransferase 25 U/L (0-40); Albumin Level 4.7 g/dL (3.5-5.0); Alkaline Phosphatase 86 U/L (39-117); Anion Gap 15 (12-20); Aspartate Amino Transferase 15 U/L (5-37); Bilirubin Direct 0.2 mg/dL (0.0-0.5); Bilirubin Total 0.5 mg/dL (0.0-1.0); Blood Urea Nitrogen 13 mg/dL (9-16); Calcium 8.7 mg/dL (8.4-10.2); Carbon Dioxide 29 mmol/L (22-29); Chloride 98 mmol/L (96-108); Creatinine Clr Calc Pharmacy 100.9; Estimated Glomerular Filt Rate > 60; Glucose Random 121 mg/dL (60-115); Magnesium 2.2 mg/dL (1.6-2.6); Potassium 4.8 mmol/L (3.3-5.1); Sodium 137 mmol/L (135-145)
[2020-09-13 13:00] LABS: Troponin-I High Sensitivity < 3.5 ng/L (<3.5-35.0)
[2020-09-13 14:14] LABS: Influenza A PCR NEGATIVE (Negative); Influenza B PCR NEGATIVE (Negative); Resp Syncy Virus RNA Qual PCR NEGATIVE (Negative); SARS COV2 PCR INHOUSE POSITIVE (Negative)
== END 2020-09-13 14:53 | disposition home or self-care (01) ==
PROVIDERS: Physician Assistant; Emergency Provider Emergency Medicine Emergency Medical Services; PCP Nurse Practitioner Family
DX: U07.1 COVID-19 (principal); H61.23 Impacted cerumen, bilateral; R42 Dizziness and giddiness; M79.10 Myalgia, unspecified site; J44.9 Chronic obstructive pulmonary disease, unspecified; F17.210 Nicotine dependence, cigarettes, uncomplicated; Z71.6 Tobacco abuse counseling; Z79.899 Other long term (current) drug therapy
CPT/HCPCS: 0241U; 36415; 70450; 80048; 80076; 80307; 81003; 83735; 84484; 85025; 87071; 87880; 93005; 99284

== ENCOUNTER 2020-09-25 11:14 | Outpatient (REF) | payer MEDICARE, MEDICAID, SELFPAY ==
[2020-09-25 11:32] LABS: COVID-19 Test Negative (Negative)
== END 2020-09-25 11:15 | disposition home or self-care (01) ==
LOC: HO.LAB 11:14
PROVIDERS: Visit Provider Internal Medicine
DX: Z20.822 Contact with and (suspected) exposure to COVID-19 (principal)
CPT/HCPCS: 36415; 87635; C9803

== ENCOUNTER 2020-12-09 11:51 | Outpatient (REF) | payer MEDICARE, MEDICAID, SELFPAY ==
--- NOTE | ~2020-12-09 | XR_ITS ---
EXAMINATION: XR CHEST CLINICAL INFORMATION: COPD. COMPARISON: Chest 09/14/2019 TECHNIQUE: 2 views of the chest were obtained. FINDINGS: Both lungs are hyperinflated but clear of acute process. Heart size and pulmonary vascularity is normal. No gross bony abnormality seen. XR/XR chest 2V IMPRESSION: Hyperinflated lungs without acute process
[2020-12-09 12:56] LABS: MANUAL DIFF FLAG NO
[2020-12-09 13:00] LABS: Basophils Absolute Auto 0.1 X10*3/uL (0.0-0.2); Basophils Percent Auto 0.7 % (0-2); Eosinophils Absolute Auto 0.3 X10*3/uL (0.0-0.4); Eosinophils Percent Auto 3.1 % (0-4); Hematocrit 45.6 % (42-52); Hemoglobin 15.5 g/dl (14.0-18.0); Imm Gran Abs Auto 0.02 X10*3/uL (0.00-0.03); Imm Gran Pct Auto 0.2 % (0.0-0.4); Lymphocytes Absolute Auto 3.1 X10*3/uL (1.2-4.9); Mean Corpuscular Hemoglobin 30.2 pg (27.0-33.0); Mean Corpuscular Volume 88.9 fL (80-98); Monocytes Absolute Auto 0.7 X10*3/uL (0.1-1.2); Monocytes Percent Auto 7.5 % (2-11); Neutrophils Absolute Auto 4.7 X10*3/uL (2.0-8.3); Neutrophils Percent Auto 53.5 % (45-73); Platelet Count 211 X10*3/uL (160-400); Red Blood Count 5.13 X10*6/uL (4.60-5.80); White Blood Count 8.8 X10*3/uL (4.8-10.8)
[2020-12-09 13:28] LABS: Alanine Aminotransferase 14 U/L (0-40); Albumin Level 4.5 g/dL (3.5-5.0); Alkaline Phosphatase 85 U/L (39-117); Anion Gap 14 (12-20); Aspartate Amino Transferase 11 U/L (5-37); Bilirubin Total 0.5 mg/dL (0.0-1.0); Blood Urea Nitrogen 11 mg/dL (9-16); Calcium 9.7 mg/dL (8.4-10.2); Carbon Dioxide 27 mmol/L (22-29); Chloride 103 mmol/L (96-108); Estimated Glomerular Filt Rate > 60; Glucose Random 94 mg/dL (60-115); Potassium 4.6 mmol/L (3.3-5.1); Sodium 139 mmol/L (135-145); Total Protein 7.8 g/dL (6.5-8.0)
== END 2020-12-09 11:52 | disposition home or self-care (01) ==
LOC: HO.LAB 11:51
PROVIDERS: Nurse Practitioner Family; PCP Internal Medicine; Visit Provider Internal Medicine
DX: J44.1 Chronic obstructive pulmonary disease with (acute) exacerbation (principal); J45.20 Mild intermittent asthma, uncomplicated
CPT/HCPCS: 36415; 71046; 80053; 85025

== ENCOUNTER 2021-03-26 15:15 | Outpatient (REF) | payer MEDICARE, MEDICAID, SELFPAY ==
[2021-03-26 15:24] LABS: MANUAL DIFF FLAG NO
[2021-03-26 16:07] LABS: Basophils Absolute Auto 0.1 X10*3/uL (0.0-0.2); Basophils Percent Auto 0.6 % (0-2); Eosinophils Absolute Auto 0.2 X10*3/uL (0.0-0.4); Eosinophils Percent Auto 2.8 % (0-4); Hematocrit 41.9 % (42-52); Hemoglobin 14.5 g/dl (14.0-18.0); Imm Gran Abs Auto 0.02 X10*3/uL (0.00-0.03); Imm Gran Pct Auto 0.2 % (0.0-0.4); Lymphocytes Absolute Auto 3.6 X10*3/uL (1.2-4.9); Lymphocytes Percent Auto 41.6 % (20-40); Mean Corpuscular HGB Conc 34.6 g/dl (31.0-36.0); Mean Corpuscular Hemoglobin 30.5 pg (27.0-33.0); Mean Corpuscular Volume 88.2 fL (80-98); Mean Platelet Volume 10.9 fL (9.4-12.4); Monocytes Absolute Auto 0.6 X10*3/uL (0.1-1.2); Monocytes Percent Auto 7.4 % (2-11); Neutrophils Absolute Auto 4.1 X10*3/uL (2.0-8.3); Neutrophils Percent Auto 47.4 % (45-73); Platelet Count 215 X10*3/uL (160-400); Red Blood Count 4.75 X10*6/uL (4.60-5.80); Red Cell Distribution Width 12.5 % (11.0-16.0); White Blood Count 8.6 X10*3/uL (4.8-10.8)
[2021-03-26 16:27] LABS: Anion Gap 11 (12-20); Blood Urea Nitrogen 12 mg/dL (9-16); Carbon Dioxide 27 mmol/L (22-29); Chloride 105 mmol/L (96-108); Estimated Glomerular Filt Rate > 60; Potassium 4.4 mmol/L (3.3-5.1); Sodium 139 mmol/L (135-145)
== END 2021-03-26 15:16 | disposition home or self-care (01) ==
LOC: HO.LAB 15:15
PROVIDERS: PCP Nurse Practitioner Family; Visit Provider Nurse Practitioner Family
DX: Z01.818 Encounter for other preprocedural examination (principal); I10 Essential (primary) hypertension
CPT/HCPCS: 36415; 80051; 82565; 84520; 85025

== ENCOUNTER 2021-12-03 10:56 | Outpatient (REF) | payer OTHER, SELFPAY ==
[2021-12-03 11:46] LABS: COVID-19 Test Negative (Negative); IDNOW Serial# 16C4AD1C
== END 2021-12-03 10:57 | disposition home or self-care (01) ==
LOC: HO.LAB 10:56
PROVIDERS: Visit Provider Internal Medicine
DX: Z20.822 Contact with and (suspected) exposure to COVID-19 (principal)
CPT/HCPCS: 87635; C9803

== ENCOUNTER 2023-01-05 13:41 | Outpatient (AMB) | payer OTHER, SELFPAY ==
[2023-01-05 13:44] VITALS: BP 110/80; PULSE 78; O2SAT 99; BMI 16.0
--- NOTE | 2023-01-05 13:44 | MHC.PC.OV ---
Vital Signs 01/05/23 13:44 Height 5 ft 7 in Weight 102 lb 4 oz BMI 16.0 BP 110/80 Blood Pressure Location Lt brachial Position Sitting Pulse 78 Pulse Source Pulse Oximeter Pulse Oximetry (%) 99 Oxygen Delivery Method Room Air Intake Visit Reasons: [facility] 12/15-12/18 partial glossectomy Civil Engineer'S Aide Required: No Accompanied by: Self / Same As Patient Allergies No Known Allergies [No Known Allergies*] Allergy (Verified 01/05/23 14:05) Medication List - Last Reconciled 01/05/23 by Milton Ash MD albuterol sulfate 90 mcg/actuation 2 puffs inhalation Q6H PRN budesonide-formoterol 160-4.5 mcg/actuation (Symbicort) 2 puffs inhalation Q12H chlorhexidine gluconate 0.12% 15 mL buccal BID 30 days ibuprofen (Advil Liqui-Gel) 200 mg PO Q6H PRN lorazepam 1 mg PO DAILY PRN 30 days Magic Mouthwash Diphen/Lido/Antacid 1:1:1 20 mL PO Q3H PRN methadone 60 mg PO DAILY oxycodone 10 mg PO Q6H PRN quetiapine 25 mg PO BEDTIME 30 days umeclidinium 62.5 mcg/actuation (Incruse Ellipta) 1 inh PO DAILY zolpidem 10 mg PO BEDTIME PRN 30 days Tobacco use date assessed: 01/05/23 Dental Screening Dental Screen Date: 01/05/23 Did you have a dental visit in the last 12 months?: No Did you have a dental problem in the last 6 months where you did not have access to dental care?: No Was dental information given to patient?: No HPI [facility] 12/15-12/18 partial glossectomy HPI Details Patient comes in today for his follow up visit He recently underwent right partial glossectomy, lateral pharyngectomy and right neck dissection at [facility] up in [place] on 12/15/2022 - specimen reportedly with negative margins on frozen section States that he is currently still experiencing a lot of pain and discomfort in his mouth, on his tongue and around and under his jaws Is currently on Oxycodone PRN for pain - Rx is being prescribed by his oncologist; patient also remains on Methadone 80 mg QD He appears to have lost some weight again since his last visit Currently still has a PEG tube in place and is being managed by dietitian - is presently getting customized feedings ([employer]) at 1.4 He denies any fever, headaches or dizziness Denies any chest pains, no SOB No nausea/vomiting, no abdominal pain No change in bowel habits noted He reportedly had some follow up labs done at [facility] last week [facility] Medical History Anxiety and depression COPD (chronic obstructive pulmonary disease) Family history of diabetes mellitus History of substance abuse Insomnia Mucositis Smoker Squamous cell carcinoma of epiglottis Surgical History (Updated 01/07/23 @ 09:18 by Milton Ash MD) History of laryngoscopy (~02/2021) History of oral surgery (~12/15/22) Family History Mother Cancer Father Dementia Other Mental health problem Substance abuse Social History Housing: Apartment Alcohol intake: former Patient Tobacco Use Status: Current everyday Tobacco user Tobacco use type: Cigarette Cigarettes Per Day: 7 e-Cigarette/Vaping Use: Never Used Second Hand Smoke Exposure: Yes service: No Current occupational status: unemployed Cognitive needs: No Hearing needs: No Vision needs: No Questionnaire PHQ-9 Over the last 2 weeks, how often have you been bothered by any of the following problems? 1. Little interest or pleasure in doing things: not at all 2. Feeling down, depressed, or hopeless: not at all 3. Trouble falling or staying asleep, or sleeping too much: not at all 4. Feeling tired or having little energy: not at all 5. Poor appetite or overeating: not at all 6. Feeling bad about yourself - or that you are a failure or have let yourself or your family down: not at all 7. Trouble concentrating on things, such as reading the newspaper or watching television: not at all 8. Moving or speaking so slowly that other people could have noticed. Or the opposite - being so fidgety or restless that you have been moving around a lot more than usual: not at all 9. Thoughts that you would be better off or of hurting yourself in some way: not at all Total score: 0 Depression Screening Interpretation: Negative (is on Rx) 83387 - PHQ-9 Billing: Yes Source: Developed by Drs. Sam Cash, Kiesha Thapa, Chacho Servin and colleagues, with an educational gayle from [employer]. Thrive Questionnaire Date Thrive assessed: 01/05/23 I am a: Patient What is your living situation today?: I have a steady place to live Within the past 12 months, did the food you bought not last and you didn't have the money to get more?: Never true Within the past 12 months, did you worry whether your food would run out before you got money to buy more?: Never true Do you have trouble paying for medicines?: No Do you have trouble getting transportation to medical appointments?: No Do you have trouble paying your heating and electricity bill?: No Do you have trouble taking care of your child, family member or friend?: No Do you have trouble with day-to-day activities such as bathing, preparing meals, shopping, managing finances, etc.?: No Are you currently unemployed and looking for a job?: No Are you interested in more education?: No Please select the resources that you would like help with: None Currently or been in a relationship where the following occur: no concerns reported AUDIT C Alcohol Use Questionnaire (AUDIT-C) 1. How often do you have a drink containing alcohol?: Never 3. How often do you have six or more drinks on one occasion?: Never Total Score: 0 Score Reviewed/Action Taken: Yes MURRAY-7 AMB Questionnaire MURRAY-7 Date MURRAY - 7 assessed: 01/05/23 Feeling nervous, anxious, or on edge: 2 = More than half the days Not being able to stop or control worryin = More than half the days Worrying too much about different things: 2 = More than half the days Trouble relaxin = More than half the days Being so restless that it is hard to sit still: 2 = More than half the days Becoming easily annoyed or irritable: 2 = More than half the days Feeling afraid as if something awful might happen: 2 = More than half the days Total MURRAY-7 score (0-4 normal; 5-9 mild; 10-14 moderate; 15-21 severe): 14 Source: Developed by Drs. Sam Cash, Kiesha Thapa, Chacho Servin and colleagues, with an educational gayle from [employer]. Review of Systems Const Denies chills, Reports difficulty sleeping (Zolpidem helps somewhat), Reports fatigue, Denies fever(s), Denies headache(s) and Reports weight loss ENT Details: Is currently unable to talk due to his recent tongue, throat and neck surgery Reports dysphagia (S/P partial glossectomy; currently has a feeding tube), Denies dizziness, Denies headache(s), Reports mouth pain (including over the jaws and on the bottom of the mouth), Reports neck pain (on the right side) and Denies sore throat Card Denies chest pain, Denies palpitations and Denies dyspnea Resp Denies cough and Denies dyspnea GI Denies abdominal pain, Denies constipation, Reports dysphagia (S/P partial glossectomy; currently has a feeding tube), Denies heartburn, Denies diarrhea, Denies nausea and Denies vomiting Denies dysuria, Denies nocturia and Denies urinary frequency Musc Reports neck pain (on the right side) Neuro Denies dizziness and Denies headache(s) Endo Reports fatigue and Denies palpitations Physical exam (Primary Care) Vital Signs: Last Vital Signs Pulse 78 01/05/23 13:44 BP 110/80 01/05/23 13:44 Pulse Ox 99 01/05/23 13:44 Oxygen Delivery Method Room Air 01/05/23 13:44 BMI result Body Mass Index 16.0 Tobacco/Smoking Status: Tobacco use Status Tobacco use date assessed 01/05/23 01/05/23 13:52 Patient Tobacco Use Status Current everyday Tobacco 01/05/23 13:52 Tobacco use type Cigarette 01/05/23 13:52 e-Cigarette/Vaping Use Never Used 01/05/23 13:52 PHQ-9: PHQ-9 Score PHQ-9: Total score 0 01/05/23 14:29 Depression Screening Interpretation: Negative (is on Rx) Thrive Assessment: Date of Thrive Assessment Date Thrive assessed 01/05/23 01/05/23 13:52 Currently or been in a relationship where the following occur: no concerns reported Const General: no acute distress and alert HENMT Other: Is unable to open mouth or talk due to increased pain and recent surgery (right partial glossectomy, lateral pharyngectomy and right neck dissection); (+) some edema noted over the jaws bilaterally and over the submental area of the neck; unable to examine oral mucosa and oral cavity due to inability to open mouth Ears: TM's normal bilaterally and EAC's normal Neck Neck: Yes no lymphadenopathy and Yes supple Resp Auscultation: clear to auscultation bilaterally, no rales and no wheezes Cardio Rate: regular rate Rhythm: regular rhythm Heart sounds: no murmurs GI Inspection: Yes G-tube present Palpation (GI): Soft to palpation and nontender Auscultation: normal bowel sounds Extrem General: Yes no clubbing, cyanosis or edema Assessment and Plan Assessment & Plan (1) Squamous cell carcinoma of epiglottis: Code(s): C32.1 - Malignant neoplasm of supraglottis Plan: S/P radiation therapy S/P right partial glossectomy, lateral pharyngectomy and right neck dissection on 12/15/22 at [facility] in [place] - states that he is currently still experiencing a lot of pain in his mouth, over his jaws and on the right side of his neck Pain medication is being prescribed and monitored by his oncologist - is on Oxycodone 10 mg Q 6 hours PRN Continues to require use of his feeding tube for nutrition - feedings are being managed by turn laster Follow up with ENT and oncology as scheduled for continuing management (2) Dysphagia: Code(s): R13.10 - Dysphagia, unspecified Qualifiers: Dysphagia type: oropharyngeal phase Qualified Code(s): R13.12 - Dysphagia, oropharyngeal phase Plan: Continues to require the use of his feeding tube to help keep up with his nutrition (3) Mouth sores: Code(s): K13.79 - Other lesions of oral mucosa Plan: Continue Chlorhexidine 0.12% solution gargle 15 ml as instructed BID PRN - Rx refilled (4) COPD (chronic obstructive pulmonary disease): Code(s): J44.9 - Chronic obstructive pulmonary disease, unspecified Qualifiers: COPD type: chronic bronchitis Chronic bronchitis type: simple Qualified Code(s): J41.0 - Simple chronic bronchitis Plan: Stable Continue Incruse Ellipta 62.5 mcg 1 inhalation QD, Symbicort 160-4.5 mcg 2 inhalation BID and Albuterol HFA 2 inhalations every 6 hours as needed (5) Thoracic aortic aneurysm: Code(s): I71.2 - Thoracic aortic aneurysm, without rupture Qualifiers: Thoracic aorta location: ascending aorta Presence of rupture: without rupture Qualified Code(s): I71.21 - Aneurysm of the ascending aorta, without rupture Plan: 4.0 cm aneurysm seen incidentally on chest CT done earlier this year Was referred to vascular surgery a few months ago but patient did not keep his appt; encouraged patient to contact vascular surgery again to reschedule his appt as soon as he can (6) History of substance abuse: Code(s): F19.11 - Other psychoactive substance abuse, in remission Plan: Continue Methadone 60 mg QD [facility]) as scheduled (7) Insomnia: Code(s): G47.00 - Insomnia, unspecified Qualifiers: Insomnia type: unspecified Qualified Code(s): G47.00 - Insomnia, unspecified Plan: Sleep hygiene reinforced Continue Zolpidem 10 mg Q HS PRN (8) Generalized anxiety disorder: Code(s): F41.1 - Generalized anxiety disorder Plan: Continue Lorazepam 1 mg QD PRN and Quetiapine 25 mg Q HS (9) Smoker: Code(s): F17.200 - Nicotine dependence, unspecified, uncomplicated Plan: Counseled again on smoking cessation, especially in light of his recent squamous cell CA of the throat/tongue (epiglottis) Plan Follow up in 4 months or PRN Medications: New chlorhexidine gluconate 0.12% 15 mL buccal BID 30 days 600 mL 5RF quetiapine 25 mg PO BEDTIME 30 days 30 tabs 3RF Coding Level of Care Code Est Pt Level 4 (61109) Diagnoses Squamous cell carcinoma of epiglottis C32.1 Dysphagia R13.12 Dysphagia type: oropharyngeal phase Mouth sores K13.79 COPD (chronic obstructive pulmonary disease) J41.0 COPD type: chronic bronchitis Chronic bronchitis type: simple Thoracic aortic aneurysm I71.21 Thoracic aorta location: ascending aorta Presence of rupture: without rupture History of substance abuse F19.11 Insomnia G47.00 Insomnia type: unspecified Generalized anxiety disorder F41.1 Smoker F17.200
== END 2023-01-05 14:19 | disposition home or self-care (01) ==
PROVIDERS: PCP Internal Medicine; Visit Provider Internal Medicine
DX: J41.0 Simple chronic bronchitis (principal); I71.21 Aneurysm of the ascending aorta, without rupture; C32.1 Malignant neoplasm of supraglottis; F17.210 Nicotine dependence, cigarettes, uncomplicated; F19.11 Other psychoactive substance abuse, in remission; R13.12 Dysphagia, oropharyngeal phase; K13.79 Other lesions of oral mucosa; G47.00 Insomnia, unspecified; F41.1 Generalized anxiety disorder
CPT/HCPCS: 99214